=== PATIENT | male | born 1990 | race Caucasian/White ===

== ENCOUNTER → 2018-11-10 | Outpatient (CLI) | payer OTHER ==
--- NOTE | 2018-11-10 15:32 | CT ---
EXAMINATION TYPE: CT abdomen pelvis w con DATE OF EXAM: 11/10/2018 COMPARISON: NONE HISTORY: 28-year-old male Left lower quadrant pain and right upper quadrant pain TECHNIQUE: Contiguous axial scanning of the abdomen and pelvis following administration of 100 ml Iso roberto 300 IV contrast. Delayed images through the kidneys and coronal/sagittal reconstructions perform ed. CT DLP: 1373.8 mGycm Automated exposure control for dose reduction was used. FINDINGS: Heart normal size without pericardial effusion. Strandy atelectasis at the right lung base without pl eural effusion. No focal liver lesion or biliary ductal dilatation. Portal venous system is patent. Gallbladder, adrenal glands, kidneys, spleen, and pancreas appear within normal limits. Scattered nonenlarged and borderline sized mesenteric lymph nodes, particularly in the right midabdom en measuring up to 7 mm, coronal image 47. No dilated small bowel, free fluid, or free air. There is a short but otherwise normal-appearing appendix is noted. Mild stool burden. Redundant sigmo id colon. No pericolonic inflammatory change. Prominent distention of the urinary bladder up to 15.6 cm. No abnormal fluid collection in the pelvis or pelvic lymphadenopathy. Bones: No osseous destructive process. IMPRESSION: 1. SCATTERED NONENLARGED AND BORDERLINE SIZED MESENTERIC LYMPH NODES MEASURING UP TO 7 MM MAY BE REAC TIVE/POST INFLAMMATORY OR COULD REFLECT A MESENTERIC ADENITIS. 2. PROMINENT DISTENTION OF THE BLADDER UP TO 15.6 CM. PLEASE CORRELATE TO ENSURE THAT THIS REPRESENTS VOLUNTARY RETENTION.
== END | disposition home or self-care (01) ==
LOC: RADCTMAIN 12:33
PROVIDERS: ATTEND Family Medicine
DX: N32.89 Other specified disorders of bladder (principal); R10.11 Right upper quadrant pain
CPT/HCPCS: 74177; Q9967

== ENCOUNTER → 2020-02-01 | Outpatient (CLI) | payer OTHER | END | disposition home or self-care (01) | LOC: LABWHC1 09:09 | PROVIDERS: ATTEND Family Medicine | DX: Z20.828 Contact with and (suspected) exposure to other viral communicable diseases (principal) | CPT/HCPCS: U0003; C9803 ==

== ENCOUNTER 2022-03-13 08:53 | Emergency (ER) | payer OTHER ==
[2022-03-13 09:10] VITALS: RESP 18; TEMP 98
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
[2022-03-13 10:42] VITALS: BP 135/78; PULSE 75
== END 2022-03-13 10:35 | disposition home or self-care (01) ==
LOC: EC 08:53
DX: S00.83XA Contusion of other part of head, initial encounter (principal); F17.200 Nicotine dependence, unspecified, uncomplicated; V89.2XXA Person injured in unspecified motor-vehicle accident, traffic, initial encounter; Y92.410 Unspecified street and highway as the place of occurrence of the external cause
CPT/HCPCS: 70450; 72125; 99284

== ENCOUNTER → 2022-06-16 | Outpatient (CLI) | payer OTHER ==
--- NOTE | 2022-06-16 19:34 | US ---
EXAMINATION TYPE: US thyroid st tissue head/neck DATE OF EXAM: 06/16/2022 COMPARISON: NONE CLINICAL HISTORY: E04.9 Goiter. possible enlarged thyroid felt doctor GLAND SIZE: Right Lobe: 4.9 x 1.8 x 1.6 cm Overall Parenchyma: homogenous Left Lobe: 5.0 x 1.5 x 1.9 cm Overall Parenchyma: homogeneous Isthmus Thickness: 0.3 cm NODULES RIGHT: # of nodules measured on right: 0 LEFT: # of nodules measured on left: 0 ISTHMUS: # of nodules measured in the isthmus: 0 Bilateral neck scanned, no evidence of lymphadenopathy. IMPRESSION: No discrete nodularity identified.
== END | disposition home or self-care (01) ==
LOC: RADUSWWP 16:24
PROVIDERS: ATTEND Family Medicine
DX: E04.9 Nontoxic goiter, unspecified (principal)
CPT/HCPCS: 76536

== ENCOUNTER → 2023-07-09 | Outpatient (CLI) | payer OTHER ==
--- NOTE | 2023-07-10 07:49 | CA ---
Exercise Stress Test Report Name: Juancho Dowell Exam Date: 07/09/2023 08:57 Exam Location: [facility] Stress Ht (in): 66 Wt (lb): 190 BSA: 1.96 Ordering Phys: Андрей Raygoza MD Referring Phys: YO Technologist: Giorgio Warren Age: 33 Gender: M : 1990 Procedure CPT: Indications: R07.9 CHEST PAIN ICD-10 Codes: Patient History: CHEST PAIN, DIFFICULTY IN BREATHING, PALPITATIONS, DIABETES, CURRENT SMOKER, ASTHMA Medications: Meds past 24 hrs: Pretest Chest Pain: STRESS TEST Jeremie Protocol Exercise Duration (min:sec): 07:[address] Depressions (mm): Angina Score: Hanna Score: Resting HR (bpm): 76 Peak HR (bpm): 161 Resting BP (mmHg): 124 / 62 Peak BP (mmHg): 167 / 70 MPHR: 187 Target HR: 159 % MPHR: 86 METS: 8.9 Total Dose: Peak Dose: Atropine: Double Product: 90949 BP Response: Stress Termination: TARGET HR REACHED/MAX EXERTION Stress Symptoms: FATIGUE Stress Summary: ECG ANALYSIS Resting ECG: Stress ECG: CONCLUSIONS Excess capacity of 7 minutes 8.9 METs achieved during this stress test No ECG evidence for ischemia arrhythmia Normal heart rate and blood pressure response Dr. Robert Goodman MD (Electronically Signed) Final Date: 10 July 2023 07:48
== END | disposition home or self-care (01) ==
LOC: RADNMMAIN 08:18
PROVIDERS: ATTEND Family Medicine
DX: R07.9 Chest pain, unspecified (principal); E11.9 Type 2 diabetes mellitus without complications; J45.909 Unspecified asthma, uncomplicated; F17.200 Nicotine dependence, unspecified, uncomplicated; R00.2 Palpitations; R06.02 Shortness of breath; Z86.79 Personal history of other diseases of the circulatory system
CPT/HCPCS: 93017